=== PATIENT | male | born 1970 | race Caucasian/White ===

== ENCOUNTER 2020-05-12 09:22 | Emergency (ER) | payer OTHER ==
[~2020-05-12 09:22] MED LIST: COLACE100 MG PO; COREG 3.125M3.125 MG PO; ECOTRIN81 MG PO; IMDUR ER TAB 3030 MG PO; LORTAB 7.5-3251 EACH PO; VITAMIN D1000 UNIT PO; ZESTRIL2.5 MG PO
[2020-05-12 10:19] LABS: HEMOGLOBIN 14.1 gm/dl (14.0-17.5); RED BLOOD COUNT 4.64 M/UL (4.20-5.50); WHITE BLOOD COUNT 3.2 K/UL (4.5-11.0)
[2020-05-12 10:47] LABS: BUN/CREATININE RATIO 16 (0-10)
== END 2020-05-12 13:08 | disposition home or self-care (01) ==
LOC: ER1 09:22
PROVIDERS: Physician Assistant
DX: R07.89 Other chest pain (principal); I10 Essential (primary) hypertension; Z98.890 Other specified postprocedural states; Z91.041 Radiographic dye allergy status
CPT/HCPCS: 71045; 80053; 82550; 82553; 83874; 84484; 85025; 85379; 93005; 99285

== ENCOUNTER → 2021-07-13 | Outpatient (CLI) | payer OTHER | LOC: HEART 5 10:54 | DX: R00.2 Palpitations (principal) ==